=== PATIENT | male | born 2000 | race Caucasian/White ===

== ENCOUNTER 2020-05-16 12:51 | Emergency (ER) | payer OTHER, SELFPAY ==
--- NOTE | 2020-05-16 13:07 | ED.SKABFB ---
HPI - Skin/Abscess/Foreign Bdy General Chief complaint: Skin/Abscess/Foreign Body Stated complaint: rash Time Seen by Provider: 05/16/20 13:07 Source: patient and RN notes reviewed Mode of arrival: ambulatory Limitations: no limitations History of Present Illness HPI narrative: 19 year old male who presents to the [facility] care with complaints of rash which started on his right hip and hands 4-5 days ago. Patient states that the rash has spread to his legs and forearms and is extremely itchy. Patient states that he works doing [employer] and also sets up [employer] and thinks he could of been exposed to poison alyx, oak or sumac. Patient states that he has not been taking anything OTC for the itching or applied any ointment to rash areas. He denies any one else in family having rash. MD complaint: rash Onset (ago): day(s) (4-5) Tetanus up to date: yes Location: generalized Severity: moderate Severity scale (1-10): 5 Quality: pruritic Pain Consistency: constant Relieving factors: none Exacerbating factors: movement Context: other (works outdoors) Treatments prior to arrival: none Related Data Allergies Allergy/AdvReac Type Severity Reaction Status Date / Time No Known Allergies Allergy Unverified 05/16/20 13:11 Review of Systems Review of Systems: Narrative: CONSTITUTIONAL: Denies fever, chills, or sweats. EYES: Denies visual changes, redness, or discharge. ENT: Denies rhinorrhea, congestion, sore throat, or otalgia. CARDIOVASCULAR: Denies chest pain, palpitations, or edema. RESPIRATORY: Denies cough or dyspnea. GASTROINTESTINAL: Denies abdominal pain, nausea, vomiting, or diarrhea. GENITOURINARY: Denies dysuria or hematuria. SKIN: positive for scattered vesicle rash and itching. MUSCULOSKELETAL: Denies back pain, joint pain, or myalgia. NEUROLOGIC: Denies headache, numbness, or weakness. PSYCHIATRIC: Denies anxiety or depression. All systems reviewed & are unremarkable except as noted in HPI and below PMFSH Past Medical History Medical History (Updated 05/16/20 @ 13:40 by Estrella Klein NP) H/O reduction of nasal fracture Hemangioma Sleep apnea Surgical History Surgical History (Updated 05/16/20 @ 13:38 by Estrella Klein NP) H/O inguinal hernia repair Social History Social History (Updated 05/16/20 @ 13:39 by Estrella Klein NP) Tobacco type: e-cigarettes/vaping Alcohol intake: current Living arrangements: with family Gender identity (if verbalized by the patient): Male Comments At time of signature, agree with nursing past medical, surgical, social history. There is no relevant family history pertinent to the presenting complaint Exam Narrative: Exam Narrative: GENERAL: Well-appearing, well-nourished, and in no acute distress. HEAD: Normocephalic, atraumatic. EYES: PERRLA and EOMI. ENT: Nares clear, no rhinorrhea or epistaxis. Mucous membranes moist. NECK: Supple. CHEST: Clear to auscultation. No respiratory distress. HEART: Regular rate and rhythm. No murmur heard. Normal peripheral pulses. ABDOMEN: Soft, nontender, nondistended, normal active bowel sounds. EXTREMITIES: Normal range of motion. No edema. SKIN: Warm, dry,red vesicle rash noted to right side of mid abdomen, on fingers, right forearm and on both lower extremities which has drained some white fluid and is severely itchy NEURO: No focal deficits. Alert and oriented x3. Course Vital Signs Vital signs: Vital Signs Temperature 36.6 C 05/16/20 13:12 Pulse Rate 83 05/16/20 13:12 Respiratory Rate 05/16/20 13:12 Blood Pressure 135/75 05/16/20 13:12 Pulse Oximetry 98 05/16/20 13:12 Temperature 36.6 C 05/16/20 13:12 Pulse Rate 83 05/16/20 13:12 Respiratory Rate 05/16/20 13:12 Blood Pressure 135/75 05/16/20 13:12 Pulse Oximetry 98 05/16/20 13:12 MDM - Skin/Abscess/Foreign Bdy Differential Diagnosis Differential diagnosis: Likely eczema, contact dermatitis and other (poison alyx,oa
[2020-05-16 13:12] VITALS: BP 135/75; PULSE 83; RESP 20; TEMP 36.6; O2SAT 98
== END 2020-05-16 13:41 | disposition home or self-care (01) ==
PROVIDERS: Emergency Provider Registered Nurse
DX: L23.7 Allergic contact dermatitis due to plants, except food (principal); F17.200 Nicotine dependence, unspecified, uncomplicated; G47.30 Sleep apnea, unspecified
CPT/HCPCS: 99213; G0463